=== PATIENT | female | born 1950 ===

== ENCOUNTER → 2024-02-24 11:15 | Outpatient (REF) | payer MEDICARE, SELFPAY ==
[2024-02-24 13:56] LABS: Hematocrit 37.7 % (37.0-47.0); Hemoglobin 12.8 g/dL (12.0-16.0); Mean Corpuscular Hgb 33.6 pg (27.0-31.0); Mean Platelet Volume 9.1 fL (7.4-10.4); Platelet Count 214 10^3/uL (130-400); Red Blood Cell Count 3.81 10^6/uL (4.20-5.40); Red Cell Dist. Width 12.6 % (11.5-14.5); White Blood Cell Count 4.9 10^3/uL (4.8-10.8)
[2024-02-24 14:13] LABS: ALT (SGPT) 18 U/L (0-35); AST (SGOT) 21 U/L (14-36); Alkaline Phosphatase 65 U/L (38-126); Blood Urea Nitrogen 26 mg/dl (7-17); Calcium 8.5 mg/dl (8.4-10.2); Carbon Dioxide 25 mmol/L (22-30); Chloride 112 mmol/L (98-107); Glucose 75 mg/dl (70-99); HDL Cholesterol 53 mg/dl; LDL Cholesterol, Calculated 83 mg/dl; Potassium 3.9 mmol/L (3.5-5.1); Sodium 141 mmol/L (135-145); Total Bilirubin 0.3 mg/dl (0.2-1.3); Total Cholesterol 147 mg/dl (50-199); Total Protein 5.3 g/dl (6.3-8.2); Triglyceride 56 mg/dl (10-149); Very Low Density Lipoprotein 11 mg/dl (0-30); eGFR > 60.00
[2024-02-24 14:16] LABS: Depakane 39.7 ug/ml (50.0-120.0)
[2024-02-25 08:56] LABS: Glycohemoglobin (HgbA1c) 5.3 % (4.0-5.6)
== END ==
LOC: OLABN 11:15
PROVIDERS: ATTENDING PHYSICIAN Student in an Organized Health Care Education/Training Program
DX: I10 Essential (primary) hypertension (principal); R73.03 Prediabetes
CPT/HCPCS: 36415; 80053; 80061; 80164; 83036; 85027

== ENCOUNTER → 2024-02-26 11:47 | Outpatient (REF) | payer MEDICARE, SELFPAY ==
[2024-02-26 13:36] LABS: Depakane 41.4 ug/ml (50.0-120.0)
== END ==
LOC: OLABN 11:47
PROVIDERS: ATTENDING PHYSICIAN Student in an Organized Health Care Education/Training Program
DX: R89.2 Abnormal level of other drugs, medicaments and biological substances in specimens from other organs, systems and tissues (principal)
CPT/HCPCS: 36415; 80164

== ENCOUNTER → 2024-03-12 09:55 | Outpatient (REF) | payer MEDICARE, SELFPAY ==
[2024-03-12 12:06] LABS: Depakane 34.4 ug/ml (50.0-120.0)
== END ==
LOC: OLABN 09:55
PROVIDERS: ATTENDING PHYSICIAN Student in an Organized Health Care Education/Training Program
DX: R87.2 Abnormal level of other drugs, medicaments and biological substances in specimens from female genital organs (principal)
CPT/HCPCS: 36415; 80164

== ENCOUNTER → 2024-03-17 09:22 | Outpatient (REF) | payer MEDICARE, SELFPAY ==
[2024-03-17 11:02] LABS: % Eosinophils 4.2 % (0-6); % Immature Granulocytes 0.3 % (0-0.5); % Lymphocytes 31.2 % (20.5-51.1); % Monocytes 13.5 % (1.7-9.3); % Neutrophils 49.8 % (42.2-75.2); Absolute Basophils 0.1 10^3/uL (0-0.2); Absolute Eosinophils 0.3 10^3/uL (0-0.7); Absolute Lymphocytes 1.9 10^3/uL (1.2-3.4); Absolute Monocytes 0.8 10^3/uL (0.1-0.6); Hematocrit 40.3 % (37.0-47.0); Hemoglobin 13.8 g/dL (12.0-16.0); Mean Corp Hgb Conc. 34.2 g/dL (33.0-37.0); Mean Corpuscular Hgb 32.9 pg (27.0-31.0); Nucleated Red Blood Cells % 0 %; Platelet Count 286 10^3/uL (130-400); Red Cell Dist. Width 12.6 % (11.5-14.5)
[2024-03-17 11:03] LABS: APTT 31.2 Sec (23.4-35.0); INR 1.64; PT 19.2 Sec (11.4-14.6)
[2024-03-17 11:13] LABS: Depakane 37.8 ug/ml (50.0-120.0)
== END ==
LOC: OLABN 09:22
PROVIDERS: ATTENDING PHYSICIAN Student in an Organized Health Care Education/Training Program
DX: R89.2 Abnormal level of other drugs, medicaments and biological substances in specimens from other organs, systems and tissues (principal); R79.1 Abnormal coagulation profile
CPT/HCPCS: 36415; 80164; 85025; 85610; 85730

== ENCOUNTER → 2024-03-24 10:37 | Outpatient (REF) | payer MEDICARE, SELFPAY ==
[2024-03-24 11:40] LABS: INR 1.84; PT 21.1 Sec (11.4-14.6)
[2024-03-24 11:58] LABS: Depakane 37.6 ug/ml (50.0-120.0)
== END ==
LOC: OLABN 10:37
PROVIDERS: ATTENDING PHYSICIAN Student in an Organized Health Care Education/Training Program
DX: R89.2 Abnormal level of other drugs, medicaments and biological substances in specimens from other organs, systems and tissues (principal); R79.1 Abnormal coagulation profile
CPT/HCPCS: 36415; 80164; 85610

== ENCOUNTER 2024-04-10 06:22 | Day surgery (SDC) | payer MEDICARE, SELFPAY ==
--- NOTE | 2024-04-08 11:49 | PTCARENOTE ---
Pt on 'respiratory surveillance' at [facility] for new cough this week and has conjunctivitis. Obtaining a rapid covid test now. Ester in Dr. Adame's office is aware.
--- NOTE | 2024-04-08 15:30 | PTCARENOTE ---
Per Sebastian, charge nurse RN, pt's rapid covid test negative. She will fax result. Pt is improving. Ester made aware.
[2024-04-10] VITALS (11 sets, daily range): BP systolic 115–160; BP diastolic 48–76
--- NOTE | 2024-04-10 11:08 | PTCARENOTE ---
Unable to assess patient regarding sleep apnea questions. Patient confused.
--- NOTE | 2024-04-10 11:18 | PTCARENOTE ---
Patient is asleep and confused when trying to screen her for suicide. Sister is at the bedside and states that patient did attempt suicide many years ago. Unable to complete any of the other suicide questions.
[2024-04-10] MEDS: NORMOSOL-R 1000 IV (12:09)
--- NOTE | 2024-04-10 14:35 | PTCARENOTE ---
Report given to NANO MATHEW.
--- NOTE | 2024-04-10 14:56 | W.SUR.PREOP ---
Pre-Operative Surgical Note
-
I have examined this patient prior to the performance of the scheduled procedure.
The patient's condition is unchanged from the time of the current History and
Physical and the patient is able to undergo the scheduled procedure.
--- NOTE | 2024-04-10 16:21 | W.IMMPOSTOP ---
Addendum entered and electronically signed by Toney Adame MD 04/10/24 16:57:
#[id number]
Original Note:
Surgical Immed Post Op Note
-
Primary Surgeon: Wendi
Assisting Surgeon: Thai Phan MD PGY 1
Pre-op Diagnosis: right chest melanoma
Post-op Diagnosis: right chest melanoma
Procedure Performed: wide local excision right chest melanoma
intermediate multilayer thickness closure of defect with local advancement skin flaps
Anesthesia Type: MAC + 1%lido with epi
Specimen / Cultures: right chest melanoma - superior stitch single; lateral stitch double
Estimated Blood Loss: 6mL
Complications: none immediate
Operative Findings: wide local excision melanoma. local advancement subcutaneous flaps with multilayer closure - deep and intermediate subcutaneous/subdermal closure with 2-0 Vicryl. skin closure with 4-0 Monocryl.
== END 2024-04-10 18:25 ==
LOC: SDS 06:22
PROVIDERS: ATTENDING PHYSICIAN Surgery
DX: C43.59 Malignant melanoma of other part of trunk (principal)
CPT/HCPCS: 11606; 15734; 88305; 88342

== ENCOUNTER → 2024-05-12 10:41 | Outpatient (REF) | payer MEDICARE, SELFPAY | LOC: OLABN 10:41 | PROVIDERS: ATTENDING PHYSICIAN Student in an Organized Health Care Education/Training Program | DX: E03.9 Hypothyroidism, unspecified (principal) | CPT/HCPCS: 36415; 84443 ==

== ENCOUNTER → 2024-06-09 11:19 | Outpatient (REF) | payer MEDICARE, SELFPAY ==
[2024-06-09 12:11] LABS: TSH 4.18 uIU/ml (0.47-4.68)
== END ==
LOC: OLABN 11:19
PROVIDERS: ATTENDING PHYSICIAN Student in an Organized Health Care Education/Training Program
DX: E03.9 Hypothyroidism, unspecified (principal)
CPT/HCPCS: 36415; 84443

== ENCOUNTER 2024-07-07 06:33 | Day surgery (SDC) | payer MEDICARE, SELFPAY ==
[2024-07-07] VITALS (8 sets, daily range): BP systolic 18–167; BP diastolic 57–99; BMI 25.9
[2024-07-07] MEDS: NORMOSOL-R/PLASMALYTE-A 1000 IV (11:52)
--- NOTE | 2024-07-07 12:33 | HP.FOC2 ---
Focused History & Physical
Chief Complaint
HPI:
Chief Complaint: Melanoma in situ
HPI / Indication for Planned Procedure: Patient is a 74-year-old female who previously undergone wide local excision of a right chest wall melanoma with myself. The invasive melanoma component was fully removed but there is a positive inferior
margin. She presents today for reexcision.
Relevant Past Medical History: Other (CAD, hypertension, hypothyroidism, GERD, CVA, dementia, anxiety, epilepsy, depression)
Relevant Social History: Negative
Relevant Family History: Negative
Relevant Past Surgical History: Positive for (Melanoma excision right chest wall)
Review of Systems
Review of Pertinent Systems: All Systems Negative
Medication
See Medication form for detailed medications: Yes
Medication List (including Herbals & OTC):
Ativan Gel 0.25 mg topical BID PRN anxiety 04/08/24
acetaminophen 325 mg tablet 650 mg PO Q4H PRN mild pain/fever 04/08/24
aspirin 81 mg capsule 81 mg PO DAILY 04/08/24
bisacodyl 10 mg rectal suppository 10 mg WI DAILY PRN mom/lactulost ineffective 04/08/24
carvedilol 25 mg tablet 25 mg PO BID 04/08/24
clonazepam 0.5 mg tablet (Klonopin) 0.5 mg PO DAILY PRN anxiety 04/08/24
clonazepam 1 mg tablet (Klonopin) 1 mg PO HS 04/08/24
divalproex 500 mg tablet,extended release 24 hr 500 mg PO BID 04/08/24
enalapril maleate 2.5 mg tablet 2.5 mg PO DAILY 04/08/24
famotidine 20 mg tablet (Pepcid) 20 mg PO DAILY 04/08/24
levetiracetam 750 mg tablet 750 mg PO Q12H 04/08/24
magnesium hydroxide 400 mg/5 mL oral suspension (Milk of Magnesia) 30 ml PO HS PRN constipation 04/08/24
phenytoin 50 mg chewable tablet 100 mg PO BID 04/08/24
quetiapine 100 mg tablet (Seroquel) 100 mg PO DAILY 04/08/24
quetiapine 100 mg tablet (Seroquel) 100 mg PO QPM 125mg total 04/08/24
quetiapine 25 mg tablet (Seroquel) 25 mg PO QPM 125mg total 04/08/24
rivaroxaban 20 mg tablet (Xarelto) 20 mg PO QPM 04/08/24
sennosides 8.6 mg tablet (senna) 8.6 mg PO QPM 04/08/24
levothyroxine 75 mcg tablet 75 mcg PO DAILY 07/03/24
Medications Reviewed: Yes
Allergies and Reactions
Patient has Allergies: No
Noted Allergies and Reactions:
Allergy/AdvReac Type Severity Reaction Status Date / Time
No Known Allergies Allergy Verified 07/07/24 11:53
Pertinent Physical Exam
All Other Systems: Negative
Head/Neck: Normal
Lungs: Normal
Heart: Normal
Abdomen: Normal
Extremities: Normal
Neurological: Normal
Other: Right chest surgical scar well-healed. No visible pigmented lesion
Diagnosis / Assessment
73-year-old female with residual positive melanoma in situ margin at previous wide local excision site of malignant melanoma
Plan / Procedure
Reexcision right chest melanoma in situ
Anesthesia/Sedation to be done by Anesthesia Provider: Yes
--- NOTE | 2024-07-07 13:58 | PTCARENOTE ---
Pt resting comfortably. Vital signs rechecked. Sister left to get lunch-updated on delay.
--- NOTE | 2024-07-07 14:57 | W.IMMPOSTOP ---
Addendum entered and electronically signed by Toney Adame MD 07/07/24 15:13:
#[id number]
Original Note:
Surgical Immed Post Op Note
-
Primary Surgeon: Wendi
Assisting Surgeon: none
Pre-op Diagnosis: Melanoma in situ
Post-op Diagnosis: Melanoma in situ
Procedure Performed: Excision melanoma in situ right chest
Anesthesia Type: MAC + 1% lidocaine with
Specimen / Cultures: Right chest skin lesion/melanoma in situ -short stitch superior, long stitch lateral
Estimated Blood Loss: 6mL
Complications: None immediate
Operative Findings: Excision of previous surgical scar with 2 cm margin superiorly and inferiorly; skin defect 11 cm x 4 cm. Multilayer closure with subcutaneous 2-0 Vicryl, deep dermal 2-0 Vicryl and subcuticular 4-0 Monocryl.
Patient's sister updated postoperatively via phone call
== END 2024-07-07 16:53 ==
LOC: SDS 06:33
PROVIDERS: ATTENDING PHYSICIAN Surgery
DX: C43.59 Malignant melanoma of other part of trunk (principal); L82.1 Other seborrheic keratosis; L91.0 Hypertrophic scar; L90.5 Scar conditions and fibrosis of skin
CPT/HCPCS: 11606; 12034; 88305; 88342

== ENCOUNTER → 2024-07-08 12:25 | Outpatient (REF) | payer MEDICARE, SELFPAY ==
[2024-07-08 12:50] LABS: % Basophils 0.7 % (0-2); % Eosinophils 0.2 % (0-6); % Immature Granulocytes 0.5 % (0-0.5); % Lymphocytes 33.1 % (20.5-51.1); % Monocytes 13.1 % (1.7-9.3); % Neutrophils 52.4 % (42.2-75.2); Absolute Lymphocytes 1.8 10^3/uL (1.2-3.4); Absolute Monocytes 0.7 10^3/uL (0.1-0.6); Absolute Neutrophils 2.9 10^3/uL (1.4-6.5); Hematocrit 39.2 % (37.0-47.0); Hemoglobin 13.4 g/dL (12.0-16.0); Mean Corp Hgb Conc. 34.2 g/dL (33.0-37.0); Mean Corpuscular Hgb 32.8 pg (27.0-31.0); Mean Corpuscular Volume 95.8 fL (81.0-99.0); Mean Platelet Volume 9.9 fL (7.4-10.4); Nucleated Red Blood Cells % 0 %; Platelet Count 242 10^3/uL (130-400); Red Blood Cell Count 4.09 10^6/uL (4.20-5.40); Red Cell Dist. Width 13.2 % (11.5-14.5); White Blood Cell Count 5.5 10^3/uL (4.8-10.8)
== END ==
LOC: OLABN 12:25
PROVIDERS: ATTENDING PHYSICIAN Student in an Organized Health Care Education/Training Program
DX: D62 Acute posthemorrhagic anemia (principal)
CPT/HCPCS: 36415; 85025

== ENCOUNTER → 2024-07-09 10:56 | Outpatient (REF) | payer MEDICARE, SELFPAY ==
[2024-07-09 11:45] LABS: Blood Urea Nitrogen 29 mg/dl (7-17); Calcium 8.4 mg/dl (8.4-10.2); Carbon Dioxide 29 mmol/L (22-30); Chloride 108 mmol/L (98-107); Glucose 78 mg/dl (70-99); Potassium 4.6 mmol/L (3.5-5.1); Sodium 141 mmol/L (135-145); eGFR > 60.00
== END ==
LOC: OLABN 10:56
PROVIDERS: ATTENDING PHYSICIAN Student in an Organized Health Care Education/Training Program
DX: D62 Acute posthemorrhagic anemia (principal)
CPT/HCPCS: 36415; 80048

== ENCOUNTER → 2024-07-29 14:02 | Outpatient (REF) | payer MEDICARE, SELFPAY ==
[2024-07-29 14:46] LABS: % Basophils 0.8 % (0-2); % Eosinophils 8.8 % (0-6); % Immature Granulocytes 0.3 % (0-0.5); % Lymphocytes 18.7 % (20.5-51.1); % Monocytes 18.7 % (1.7-9.3); % Neutrophils 52.7 % (42.2-75.2); Absolute Basophils 0.1 10^3/uL (0-0.2); Absolute Eosinophils 0.6 10^3/uL (0-0.7); Absolute Lymphocytes 1.2 10^3/uL (1.2-3.4); Absolute Monocytes 1.2 10^3/uL (0.1-0.6); Absolute Neutrophils 3.3 10^3/uL (1.4-6.5); Hematocrit 36.5 % (37.0-47.0); Hemoglobin 12.2 g/dL (12.0-16.0); Mean Corp Hgb Conc. 33.4 g/dL (33.0-37.0); Mean Corpuscular Hgb 32.7 pg (27.0-31.0); Mean Corpuscular Volume 97.9 fL (81.0-99.0); Mean Platelet Volume 9.5 fL (7.4-10.4); Nucleated Red Blood Cells % 0 %; Platelet Count 248 10^3/uL (130-400); Red Blood Cell Count 3.73 10^6/uL (4.20-5.40); Red Cell Dist. Width 13.6 % (11.5-14.5); White Blood Cell Count 6.3 10^3/uL (4.8-10.8)
[2024-07-29 15:21] LABS: ALT (SGPT) 16 U/L (0-35); AST (SGOT) 23 U/L (14-36); Albumin 3.3 g/dl (3.5-5.0); Alkaline Phosphatase 64 U/L (38-126); Blood Urea Nitrogen 16 mg/dl (7-17); Calcium 8.7 mg/dl (8.4-10.2); Carbon Dioxide 25 mmol/L (22-30); Chloride 107 mmol/L (98-107); Glucose 87 mg/dl (70-99); Potassium 4.2 mmol/L (3.5-5.1); Sodium 142 mmol/L (135-145); Total Bilirubin 0.2 mg/dl (0.2-1.3); Total Protein 5.8 g/dl (6.3-8.2); eGFR > 60.00
== END ==
LOC: OLABN 14:02
PROVIDERS: ATTENDING PHYSICIAN Student in an Organized Health Care Education/Training Program
DX: C43.59 Malignant melanoma of other part of trunk (principal); R05.1 Acute cough
CPT/HCPCS: 36415; 80053; 85025

== ENCOUNTER → 2024-08-25 09:36 | Outpatient (REF) | payer MEDICARE, SELFPAY ==
[2024-08-25 10:43] LABS: Depakane 31.6 ug/ml (50.0-120.0)
[2024-08-25 13:43] LABS: Glycohemoglobin (HgbA1c) 5.1 % (4.0-5.6)
== END ==
LOC: OLABN 09:36
PROVIDERS: ATTENDING PHYSICIAN Student in an Organized Health Care Education/Training Program
DX: I10 Essential (primary) hypertension (principal); R73.03 Prediabetes
CPT/HCPCS: 36415; 80164; 83036

== ENCOUNTER → 2024-12-22 11:32 | Outpatient (REF) | payer MEDICARE, SELFPAY ==
[2024-12-22 13:32] LABS: HDL Cholesterol 40 mg/dl; LDL Cholesterol, Calculated 92 mg/dl; Total Cholesterol 146 mg/dl (50-199); Triglyceride 74 mg/dl (10-149); Very Low Density Lipoprotein 14 mg/dl (0-30)
== END ==
LOC: OLABN 11:32
PROVIDERS: ATTENDING PHYSICIAN Student in an Organized Health Care Education/Training Program
DX: I10 Essential (primary) hypertension (principal)
CPT/HCPCS: 36415; 80061

== ENCOUNTER → 2025-01-04 11:16 | Outpatient (REF) | payer MEDICARE, SELFPAY ==
[2025-01-04 13:09] LABS: Mean Corp Hgb Conc. 33.3 g/dL (33.0-37.0); Mean Corpuscular Hgb 32.9 pg (27.0-31.0); Mean Corpuscular Volume 98.7 fL (81.0-99.0); Mean Platelet Volume 9.5 fL (7.4-10.4); Platelet Count 204 10^3/uL (130-400); Red Blood Cell Count 3.95 10^6/uL (4.20-5.40); Red Cell Dist. Width 13.1 % (11.5-14.5); White Blood Cell Count 7.9 10^3/uL (4.8-10.8)
[2025-01-04 15:17] LABS: Blood Urea Nitrogen 27 mg/dl (7-17); Calcium 8.7 mg/dl (8.4-10.2); Carbon Dioxide 24 mmol/L (22-30); Chloride 110 mmol/L (98-107); Glucose 73 mg/dl (70-99); Potassium 4.2 mmol/L (3.5-5.1); Sodium 143 mmol/L (135-145); eGFR > 60.00
[2025-01-04 17:37] LABS: Vitamin D, 25-OH*** 15.9 ng/mL (30-80)
[2025-01-04 17:51] LABS: TSH 2.88 uIU/ml (0.47-4.68)
== END ==
LOC: OLABN 11:16
PROVIDERS: ATTENDING PHYSICIAN Student in an Organized Health Care Education/Training Program
DX: E55.9 Vitamin D deficiency, unspecified (principal); R94.6 Abnormal results of thyroid function studies; I10 Essential (primary) hypertension; Z13.1 Encounter for screening for diabetes mellitus; R73.03 Prediabetes
CPT/HCPCS: 36415; 80048; 82306; 83036; 84443; 85027

== ENCOUNTER → 2025-02-22 09:52 | Outpatient (REF) | payer MEDICARE, SELFPAY ==
[2025-02-22 11:23] LABS: Hematocrit 39.8 % (37.0-47.0); Hemoglobin 13.2 g/dL (12.0-16.0); Mean Corp Hgb Conc. 33.2 g/dL (33.0-37.0); Mean Corpuscular Hgb 33.4 pg (27.0-31.0); Mean Corpuscular Volume 100.8 fL (81.0-99.0); Mean Platelet Volume 9.5 fL (7.4-10.4); Platelet Count 214 10^3/uL (130-400); Red Blood Cell Count 3.95 10^6/uL (4.20-5.40); Red Cell Dist. Width 12.9 % (11.5-14.5); White Blood Cell Count 6.9 10^3/uL (4.8-10.8)
[2025-02-22 12:23] LABS: ALT (SGPT) 15 U/L (0-35); AST (SGOT) 18 U/L (14-36); Albumin 3.1 g/dl (3.5-5.0); Alkaline Phosphatase 58 U/L (38-126); Blood Urea Nitrogen 17 mg/dl (7-17); Calcium 8.4 mg/dl (8.4-10.2); Carbon Dioxide 22 mmol/L (22-30); Chloride 114 mmol/L (98-107); Glucose 105 mg/dl (70-99); HDL Cholesterol 50 mg/dl; LDL Cholesterol, Calculated 88 mg/dl; Sodium 144 mmol/L (135-145); Total Bilirubin 0.5 mg/dl (0.2-1.3); Total Cholesterol 150 mg/dl (50-199); Total Protein 5.4 g/dl (6.3-8.2); Triglyceride 63 mg/dl (10-149); Very Low Density Lipoprotein 12 mg/dl (0-30); eGFR > 60.00
== END ==
LOC: OLABN 09:52
PROVIDERS: ATTENDING PHYSICIAN Student in an Organized Health Care Education/Training Program
DX: I10 Essential (primary) hypertension (principal)
CPT/HCPCS: 36415; 80053; 80061; 80164; 85027

== ENCOUNTER → 2025-06-17 10:17 | Outpatient (REF) | payer MEDICARE, SELFPAY ==
[2025-06-17 12:12] LABS: Vitamin D, 25-OH*** 26.1 ng/mL (30-80)
== END ==
LOC: OLABN 10:17
PROVIDERS: ATTENDING PHYSICIAN Student in an Organized Health Care Education/Training Program
DX: E55.9 Vitamin D deficiency, unspecified (principal)
CPT/HCPCS: 36415; 82306

== ENCOUNTER → 2025-08-25 09:27 | Outpatient (REF) | payer MEDICARE, SELFPAY | LOC: OLABN 09:27 | PROVIDERS: ATTENDING PHYSICIAN Student in an Organized Health Care Education/Training Program | DX: G40.909 Epilepsy, unspecified, not intractable, without status epilepticus (principal) | CPT/HCPCS: 36415; 80177; 80185 ==